=== PATIENT | female | born 1950 | race Caucasian/White ===

== ENCOUNTER 2023-09-01 15:14 | Outpatient (CLI) | payer MEDICARE | END 2023-09-01 15:15 | disposition home or self-care (01) | LOC: BURRAD 15:14 | PROVIDERS: ATTEND Physician Assistant | DX: M54.42 Lumbago with sciatica, left side (principal); M54.41 Lumbago with sciatica, right side; M41.9 Scoliosis, unspecified; M47.816 Spondylosis without myelopathy or radiculopathy, lumbar region | CPT/HCPCS: 72100 ==

== ENCOUNTER 2024-08-17 09:51 | Outpatient (CLI) | payer MEDICARE | END 2024-08-17 09:52 | disposition home or self-care (01) | LOC: BURRAD 09:51 | PROVIDERS: ATTEND Physician Assistant | DX: M25.551 Pain in right hip (principal); M16.11 Unilateral primary osteoarthritis, right hip ==